=== PATIENT | male | born 1990 | race African-American/Black ===

== ENCOUNTER 2017-09-25 14:53 | Emergency (ER) | payer OTHER ==
[2017-09-25] MEDS: METOCLOPRAMIDE 10 MG TABLET. PO (17:01)
[2017-09-25] MEDS: diphenhydrAMINE HCL 25 MG CAPSULE PO (17:01)
[2017-09-25] MEDS: HYDROcodone/APAP 5/325MG 1 TAB TABLET PO (17:03)
[2017-09-25] MEDS: KETOROLAC 60 MG/2 ML INJ. IM (17:03)
== END 2017-09-25 17:45 | disposition home or self-care (01) ==
LOC: ER 17:45
DX: R51 Headache (principal); R11.10 Vomiting, unspecified; F12.10 Cannabis abuse, uncomplicated
CPT/HCPCS: 70450; 96372; 99284-25; J1885; J8597; Q0163